=== PATIENT | male | born 1995 | race Caucasian/White ===

== ENCOUNTER 2024-11-11 15:34 | Emergency (ER) | payer OTHER, SELFPAY ==
[2024-11-11 15:37] VITALS: BP 141/88
--- NOTE | 2024-11-11 18:01 | ED.SKININJ ---
HPI-Injury
General
Chief Complaint: Skin Problem
Source: patient
Exam Limitations: none
Time Seen by Provider: 11/11/24 17:55
History of Present Illness-Injury
Initial Injury comments:
29-year-old male presents complaining of a swollen tender bump to the left knee noticed today. He states he may have bumped it on his kayak. No other trauma. He states it is less swollen now than what it was initially. No fever no redness. No
known insect bite. No other complaints
Past History
Social History
Tobacco: Non-smoker
Alcohol: None
Drug: Marijuana (first time use today)
Phy Exam
Physical Exam
Physical Exam:
General: Well-appearing male no acute respiratory distress
HEENT: Normocephalic atraumatic
Musculoskeletal exam: Anterior medial left knee Quarter size contusion slightly swollen mildly tender no deformity able to straight leg raise. No lymphangitis no erythema fluctuance or induration.
Course
Vital Signs
Initial and Last Documented VS:
Initial Vital Signs
Temp Pulse Resp BP Pulse Ox
98.2 F 78 16 141/88 99
11/11/24 15:37 11/11/24 15:37 11/11/24 15:37 11/11/24 15:37 11/11/24 15:37
Last Documented Vital Signs
Temp Pulse Resp BP Pulse Ox
98.2 F 78 16 141/88 99
11/11/24 15:37 11/11/24 15:37 11/11/24 15:37 11/11/24 15:37 11/11/24 15:37
*Critical Care Note
Total Time (30-74mins, 75-104mins- exclusive of procedures): Not Applicable
Update Note
Update Note:
Exam most consistent with contusion. No indication for any further intervention. No sign of infection. Stable for discharge
ED Attending Note
-
Portions of this chart may have been created with voice recognition software.� Occasional wrong word or��sound alike� substitutions may have occurred due to the inherent limitations of voice recognition software.
Discharge Plan
Departure
Patient Disposition: Home (Routine Discharge)
Date of Disposition: 11/11/24
Time of Disposition: 18:03
Patient with high blood pressure during this ER visit?: No
Discharge Problem:
Contusion
Prescriptions:
No Action
Advair
Patient Comments:
pt unsure of dose
Referrals:
Татьяна Marquez MD [Family Provider] -
Activity Restrictions/Additional Instructions:
Yeah exam most consistent today with contusion. You may take Tylenol or use ibuprofen or ice. Return if needed
Interventions
Interventions:
*Risk Screen - Suicide Last Done: 11/11/24 15:37
*General Assessment Last Done: 11/11/24 15:37
*Neglect/Abuse Screening Last Done: 11/11/24 15:37
Discharge Date and Time
Print Language: GUINEAN
[2024-11-11 18:16] VITALS: BP 135/74
== END 2024-11-11 18:17 | disposition home or self-care (01) ==
LOC: EMR 15:34
PROVIDERS: EMERGENCY PHYSICIAN Emergency Medicine; FAMILY PHYSICIAN Student in an Organized Health Care Education/Training Program
DX: S80.02XA Contusion of left knee, initial encounter (principal); M79.89 Other specified soft tissue disorders; X58.XXXA Exposure to other specified factors, initial encounter; Z88.1 Allergy status to other antibiotic agents; Z88.0 Allergy status to penicillin
CPT/HCPCS: 99281